=== PATIENT | female | born 1995 | race Caucasian/White ===

== ENCOUNTER 2018-05-25 22:32 | Emergency (ER) | payer MEDICAID, SELFPAY ==
--- NOTE | 2018-05-25 00:15 | DI.RAD_ITS ---
SYMPTOM/DIAGNOSIS: CHRONIC LT KNEE PAIN, CHRONIC T 5 PAIN LEFT KNEE: Three views were obtained. No fracture is seen. THORACIC SPINE: Three views were obtained. No fracture is seen.
[2018-05-25 22:38] VITALS: BP 140/98; PULSE 100; RESP 16; TEMP 36.7; O2SAT 100
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
--- NOTE | 2018-05-26 00:43 | DI.VRAD_ITS ---
EXAM: XR Thoracic Spine, 3 Views EXAM DATE/TIME: 05/25/2018 10:54 PM CLINICAL HISTORY: 23 years old, female; Pain; Pain in thoracic spine; Other: Unknown; Patient HX: Mid back pain, PT unable to remove necklace TECHNIQUE: XR of the thoracic spine, 3 views. COMPARISON: No relevant prior studies available. FINDINGS: Vertebrae: Bony structures are unremarkable. No fracture. No dislocation. Soft tissues: Soft tissues are unremarkable. No opaque foreign body. IMPRESSION: Normal thoracic spine. Dictated and Authenticated by: Julien Mas MD. Ordering:JERALD BARRIENTOS MD
--- NOTE | 2018-05-26 00:44 | DI.VRAD_ITS ---
EXAM: XR Left Knee, 3 Views EXAM DATE/TIME: 05/25/2018 10:54 PM CLINICAL HISTORY: 23 years old, female; Pain; Knee; Left; Patient HX: Knee pain, chronic TECHNIQUE: XR Left knee 3 views. COMPARISON: CR LEFT TIB/FIB 10/24/2011 9:37 AM FINDINGS: Bones/joints: Bony structures are unremarkable. No fracture. No dislocation. Soft tissues: Soft tissues are unremarkable. No opaque foreign body. IMPRESSION: Normal left knee. Dictated and Authenticated by: Julien Mas MD. Ordering:JERALD BARRIENTOS MD
== END 2018-05-26 01:14 | disposition home or self-care (01) ==
PROVIDERS: Emergency Provider Student in an Organized Health Care Education/Training Program; PCP Pediatrics
DX: M25.562 Pain in left knee (principal); M54.6 Pain in thoracic spine
CPT/HCPCS: 73562; 96372; 99284; 72072

== ENCOUNTER 2018-06-05 00:48 | Outpatient (CLI) | payer MEDICAID, SELFPAY ==
--- NOTE | 2018-06-05 09:37 | DI.MRI_ITS ---
SYMPTOMS/DIAGNOSIS: LT KNEE PAIN, INTERNAL DERANGEMENT LT KNEE MRI OF THE LEFT KNEE: Comparison is made with plain films dated . Fat suppressed T 2 axial, proton density and fat suppressed T 2 sagittal T 1, and fat suppressed T 2 coronal and proton density oblique sagittal sequences were performed. There is a small joint effusion and tiny wray's cyst. The cruciate and collateral ligaments and extensor mechanism appear intact. The marrow signal is normal. No meniscal tears are seen. There is no evidence of cartilage defects. IMPRESSION: Small joint effusion and tiny wray's cyst.
== END 2018-06-05 01:08 ==
PROVIDERS: PCP Pediatrics; Visit Provider Student in an Organized Health Care Education/Training Program
DX: M25.562 Pain in left knee (principal); M71.22 Synovial cyst of popliteal space [Baker], left knee; M25.462 Effusion, left knee
CPT/HCPCS: 73721

== ENCOUNTER 2019-01-26 14:59 | Emergency (ER) | payer MEDICAID, SELFPAY ==
--- NOTE | 2019-01-26 15:11 | NUR.NOTE ---
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
[2019-01-26 15:13] VITALS: PULSE 70; RESP 18; TEMP 36.6; O2SAT 98
--- NOTE | 2019-01-26 15:50 | ED.GENADUL_ITS ---
Discharge Plan Disposition Patient Disposition: HOME Discharge Details Chief Complaint: Laceration Clinical Impression: Laceration of toe Primary Care Provider: Jailene Carl V ED Provider: Saman Mai Home Meds and New Rx's Prescriptions: No Action No Known Home Meds RF: 0 Discharge Instructions Instructions: Laceration (ED) Additional Instructions: You should have your sutures removed in 10 days. Keep for teething for 2 days and then change dressing daily thereafter. Apply antibiotic ointment. Monitor for signs of infection including increased redness, swelling, warmth, discharge, or pain. Return to the ER for any worsening or new concerning symptoms. Discharge Data Discharge Date/Time-TO BE ENTERED AT DEPARTURE: 01/26/19 17:32 Medical Decision Making 23-year-old female here with right great toe laceration after stubbing her toe on ground. No bony tenderness. Nail intact. LMX topical lidocaine applied. Digital block of the great toe performed after informed consent. Wound irrigated with copious sterile saline. Skin flap tacked down with 4 sutures. Sterile dressing applied. Tetanus up-to-date per patient. Usual customary discharge instructions were provided. HPI General Mode of arrival: ambulatory . Date/Time Provider Initiated Documentation: 01/26/19 15:48 . Limitations to Documentation: no limitations . Information obtained by: patient . HPI Narrative: 23 yo f here with chief complaint of right toe injury. Patient notes that just prior to arrival she stubbed her right toe on the ground. She sustained laceration to her toe just adjacent to her toenail. Laceration has been bleeding. Bleeding is mild to moderate. Eating controlled with dressing. No associated numbness or weakness. No other injury. Related Data Home Medications Medication Instructions Recorded Confirmed Unknown [No Known Home Meds] 08/29/15 01/26/19 Allergies Allergy/AdvReac Type Severity Reaction Status Date / Time No Known Allergies Allergy Unverified 01/26/19 15:15 General Stated Complaint: Laceration BRICE: 4 Review of Systems Musculoskeletal Reports as per HPI Integumentary/Breasts Reports as per HPI [facility] Social History Smoking/Tobacco Use Status: Current every day Tobacco Type: cigarettes Alcohol Intake: current Alcohol Intake frequency: a few times a week Alcohol type: beer Drug use: Daily Substance use type: marijuana Do you feel safe at home: Yes Do you feel safe in your relationship?: Yes Additional Social history: stated last tetanus vaccine 1 year ago Exam Const General: cooperative and no acute distress Cardio Rate: regular rate and not tachycardic Rhythm: regular rhythm Skin Trauma: laceration (rt distal great toe avulsion skin flap extending to medial distal nailbed) Neuro General: alert and awake Other: distal sensation intact rt great toe Extrem General: no edema Right lower extremity: foot Details: normal capillary refill, toes with normal ROM, laceration (as noted above), motor-sensory exam and other (no jesus tenderness) Course Vital Signs Temperature 36.6 C 01/26/19 15:13 Pulse 70 01/26/19 15:13 Respiratory Rate 18 01/26/19 15:13 Pulse Oximetry 98 01/26/19 15:13 Temperature 36.6 C 01/26/19 15:13 Temperature Source Skin 01/26/19 15:13 Pulse 70 01/26/19 15:13 Respiratory Rate 18 01/26/19 15:13 Respiratory Effort 01/26/19 15:17 Pulse Oximetry 98 01/26/19 15:13 Oxygen Delivery Method Room Air 01/26/19 15:13 Oxygen Flow Rate 0 01/26/19 15:13 Pain Level 4 01/26/19 15:13 Procedures Laceration Laceration 1: Site: lower extremity (great toe) Side (If applicable): right Size (cm): 1 Description: flap Depth: simple, single layer Local Anesthetic: Lidocaine 1% (digital block. 2ml injected at base of toe) Pre-repair: wound explored, irrigated extensively and deep structures intact Skin layer closed with: other (prolene) Size (cm): 5-0 Number of sutures: 4 Technique: simple, interrupted
[2019-01-26] MEDS: Lidocaine 4% Cream 5 GM TUBE TP (16:15)
[2019-01-26] MEDS: Bupivacaine 0.5% Pres-Free 30 ML VIAL IJ (17:01)
== END 2019-01-26 17:32 | disposition home or self-care (01) ==
PROVIDERS: Emergency Provider Student in an Organized Health Care Education/Training Program; PCP Pediatrics
DX: S91.121A Laceration with foreign body of right great toe without damage to nail, initial encounter (principal); W22.8XXA Striking against or struck by other objects, initial encounter
CPT/HCPCS: 12001

== ENCOUNTER 2020-02-28 19:35 | Emergency (ER) | payer MEDICAID, SELFPAY ==
[2020-02-28 19:41] VITALS: BP 153/94; PULSE 78; RESP 15; TEMP 37; O2SAT 100
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
[2020-02-28] MEDS: Acetaminophen 500 MG TAB 1000 MG PO (20:27)
[2020-02-28] MEDS: Ibuprofen 600 MG TAB PO (20:27)
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
[2020-02-28 21:20] VITALS: BP 133/76; PULSE 70; RESP 16; TEMP 37; O2SAT 100
[2020-02-28] MEDS: Lidocaine 5% Patch 1 PATCH TP (21:21)
== END 2020-02-28 21:15 | disposition home or self-care (01) ==
PROVIDERS: Emergency Provider Physician Assistant; PCP Pediatrics
DX: M54.6 Pain in thoracic spine (principal); V18.0XXA Pedal cycle driver injured in noncollision transport accident in nontraffic accident, initial encounter; Y93.55 Activity, bike riding
CPT/HCPCS: 81025; 99284; 72128